=== PATIENT | male | born 1990 | race African-American/Black ===

== ENCOUNTER 2019-04-04 22:10 | Emergency (ER) | payer OTHER ==
[2019-04-04 22:26] VITALS: BMI 39.5
[2019-04-04] MEDS ORDERED: KETOROLAC TROMETHAMINE 30 MG/1 ML VIAL IVPUSH ONE (22:57)
[2019-04-04] MEDS ORDERED: SODIUM CHLORIDE 0.9% 500 ML INFUS.BAG IV ONE (22:57)
[2019-04-04] MEDS ORDERED: FAMOTIDINE 20 MG/50 ML IVPB 20 MG/50 ML MG IVPB ONE ×2 (23:25→23:29)
--- NOTE | 2019-04-04 23:25 | PDOC ---
History of Present Illness - General Chief Complaint: Cold Symptoms Stated Complaint: FEVER Time Seen by Provider: 04/04/19 23:09 History Source: Patient Exam Limitations: No Limitations - History of Present Illness Initial Comments: 04/04/19 23:31 Patient is a 28-year-old male with no past medical history here with complaints of diarrhea, sore throat, body aches, fever since 3 days. States he started out with some diarrhea and progress to body aches sore throat and fever. (+) Nasal congestion, (+) recent. States it is difficult to swallow pain is 7/10 sharp in his throat, and endorses epigastric burning abdominal pain 8/10. He has been trying to track hydrate with three 8 ounce cups of water per hour. Denies any sick contact or food contact. PMHX: as above PSOCHX: ALL: NKDA GENERAL/CONSTITUTIONAL: No fever or chills. No weakness. No weight change. HEAD, EYES, EARS, NOSE AND THROAT: No change in vision. No ear pain or discharge. (+) sore throat. CARDIOVASCULAR: No chest pain or shortness of breath. RESPIRATORY: (+) cough, (-) wheezing, or hemoptysis. GASTROINTESTINAL: (+) nausea, (-) vomiting, (+) diarrhea (-) constipation. No rectal bleeding. GENITOURINARY: No dysuria, frequency, or change in urination. MUSCULOSKELETAL: No joint or muscle swelling or pain. No neck or back pain. SKIN AND BREASTS: No rash or easy bruising. NEUROLOGIC: No headache, vertigo, loss of consciousness, or loss of sensation. PSYCHIATRIC: No depression or anxiety. ENDOCRINE: No increased thirst. No abnormal weight change. HEMATOLOGIC/LYMPHATIC: No anemia, easy bleeding, or history of blood clots. ALLERGIC/IMMUNOLOGIC: No hives or skin allergy. No latex allergy. GENERAL: The patient is awake, alert, and fully oriented, in no acute distress. HEAD: Normal with no signs of trauma. EYES: Pupils equal, round and reactive to light, extraocular movements intact, sclera anicteric, conjunctiva clear. ENT: Ears normal, nares patent, oropharynx clear without exudates, mild erythema. Moist mucous membranes. NECK: Normal range of motion, supple without lymphadenopathy, JVD, or masses. LUNGS: Breath sounds equal, clear to auscultation bilaterally. No wheezes, and no crackles. HEART: Regular rate and rhythm, normal S1 and S2 without murmur, rub. ABDOMEN: Soft, (+) tenderness in the epigastrum, (-) tenderness McBurny's point , normoactive bowel sounds. No guarding, no rebound. No masses, (-) CVAT. EXTREMITIES: Normal range of motion, no edema. No clubbing or cyanosis. No cords, erythema, or tenderness. NEUROLOGICAL: Cranial nerves II through XII grossly intact. Normal speech, normal gait. PSYCH: Normal mood, normal affect. SKIN: Warm, Dry, normal turgor, no rashes or lesions noted. Past History - Past Medical History Allergies/Adverse Reactions: Allergies Allergy/AdvReac Type Severity Reaction Status Date / Time bee venom protein (honey bee) Allergy Verified 04/04/19 22:23 Home Medications: Ambulatory Orders Ranitidine HCl [Zantac] 300 mg PO DAILY #14 tablet 04/05/19 Cancer: No Cardiac Disorders: No CVA: No COPD: No Other medical history: eczema - Suicide/Smoking/Psychosocial Hx Smoking History: Never smoked Information on smoking cessation initiated: No Hx Alcohol Use: No Drug/Substance Use Hx: No *Physical Exam - Vital Signs Last Vital Signs Temp Pulse Resp BP Pulse Ox 103 F H 100 H 20 138/75 99 04/04/19 22:23 04/04/19 22:23 04/04/19 22:23 04/04/19 22:23 04/04/19 22:23 ED Treatment Course - LABORATORY CBC & Chemistry Diagram: 04/04/19 23:26 04/04/19 23:26 - RADIOLOGY Radiology Studies Ordered: Category Date Time Status CHEST PA & LAT [RAD] Stat Radiology 04/04/19 22:56 Ordered Medical Decision Making - Medical Decision Making 04/04/19 23:31 Patient is a 28-year-old male with no past medical history here with complaints of diarrhea, sore throat, body aches, fever since 3 days. States he started out with some diarrhea and progress to body aches sore throat and fever. (+) Nasal congestion, (+) recent. States it is difficult to swallow pain is 7/10 sharp in his throat. He has been trying to track hydrate with three 8 ounce cups of water per hour. Denies any sick contact or food contact. Symptoms are consistent with a viral illness. Labs include rapid strep. IV fluid, Toradol, Pepcid, Decadron Reassess 04/05/19 00:59 Conclusion feels improved after fluids and medications. Labs reviewed noted to have potassium of 3.2. will replace with KCl 40 meq po. Chest x-ray negative Bedside ultrasound done due to continued complaint of epigastric pain, was negative for gallstone, septated gallbladder noted. Patient was given GI cocktail, combination of Maalox and viscous lidocaine. Patient given Bentyl 20 mg by mouth Selected Entries 04/05/19 03:11 Temperature 100.2 F H Pulse Rate [ 96 H Left Radial] Respiratory 18 Rate Blood Pressure 130/74 [Left Arm] O2 Sat by Pulse 97 Oximetry (%) Patient is tolerating by mouth states she still has mild burning in the epigastrium. We will refer patient to the GI. I discussed the physical exam findings, ancillary test results and final diagnoses with the patient. I answered all of the patient's questions. The patient was satisfied with the care received and felt comfortable with the discharge plan and treatment plan. The Patient agrees to follow up with the primary care physician within 24-72 hours. *DC/Admit/Observation/Transfer Diagnosis at time of Disposition: Fever Qualifiers: Fever type: unspecified Qualified Code(s): R50.9 - Fever, unspecified Upper respiratory infection Qualifiers: URI type: unspecified URI Qualified Code(s): J06.9 - Acute upper respiratory infection, unspecified - Discharge Dispostion Disposition: HOME Condition at time of disposition: Stable - Prescriptions Prescriptions: Ranitidine HCl [Zantac] 300 mg PO DAILY #14 tablet - Referrals Referrals: Juan Ramon Odom MD [Staff Physician] - - Patient Instructions Printed Discharge Instructions: DI for Viral Upper Respiratory Infection -- Adult, DI for Diarrhea and Traveler's Diarrhea -- Adult, DI for Viral Pharyngitis Additional Instructions: Your Discharge Instructions: You must call primary care physician within 24 hours to arrange follow-up. Return to the Emergency Department with any new, persistent or worsening symptoms, for fever, chills, SOB, dizziness or any other concerning changes that may occur. Follow-up with the orthopedic dentist - Post Discharge Activity Forms/Work/School Notes: Back to Work
[2019-04-04] MEDS ORDERED: KETOROLAC TROMETHAMINE 30 MG/1 ML VIAL ONE (23:29)
[2019-04-04 23:32] LABS: BASO % 0.3 % (0-2.0); EOS % 0.1 % (0-4.5); HEMATOCRIT 39.5 % (35.4-49); HEMOGLOBIN 13.4 GM/dL (11.7-16.9); LYMPH % 14.7 % (8-40); MCH 24.8 pg (25.7-33.7); MEAN CELL VOLUME 73.1 fl (80-96); MEAN PLT VOLUME 9.2 fl (7.5-11.1); MONO % 11.4 % (3.8-10.2); NEUT % 73.5 % (42.8-82.8); PLATELET COUNT 106 K/MM3 (134-434); RDW 13.8 % (11.9-15.9); WHITE BLOOD COUNT 8.9 K/mm3 (4.0-10.0)
[2019-04-04] MEDS ORDERED: DEXAMETHASONE SOD PHOSPHATE 10 MG/1 ML VIAL IVPUSH ONE (23:36)
[2019-04-04] MEDS ORDERED: DEXAMETHASONE SOD PHOSPHATE 10 MG/1 ML VIAL ONE (23:47)
[2019-04-05 00:05] LABS: ALBUMIN 4.1 g/dl (3.4-5.0); BILIRUBIN,TOTAL 0.4 mg/dL (0.2-1); CALCIUM 8.6 mg/dL (8.5-10.1); CREATININE 1.4 mg/dL (0.55-1.3); POTASSIUM 3.2 mmol/L (3.5-5.1); TOT PROT 7.3 g/dl (6.4-8.2)
[2019-04-05] MEDS ORDERED: POTASSIUM CHLORIDE TABS 20 MEQ TABLET.ER (FP) PO ONE ×2 (00:33→01:55)
[2019-04-05] MEDS ORDERED: DICYCLOMINE HCL 20 MG TABLET PO ONE (02:04)
[2019-04-05] MEDS ORDERED: LIDOCAINE VISCOUS 2% ORAL/TOP 20 ML UNIT-DOSE CUP MM ONE (02:04)
[2019-04-05] MEDS ORDERED: MAG HYDROX/AL HYDROX/SIMETH 30 ML UNIT-DOSE CUP PO ONE (02:04)
[2019-04-05] MEDS ORDERED: DICYCLOMINE HCL 10 MG CAPSULE ONE (02:16)
[2019-04-05] MEDS ORDERED: LIDOCAINE VISCOUS 2% ORAL/TOP 20 ML UNIT-DOSE CUP ONE (02:16)
[2019-04-05] MEDS ORDERED: MAG HYDROX/AL HYDROX/SIMETH 30 ML UNIT-DOSE CUP ONE (02:17)
[2019-04-05 02:44] LABS: URINE APPEARANCE CLEAR; URINE BILIRUBIN NEGATIVE (NEGATIVE); URINE COLOR DK YELLOW; URINE GLUCOSE (UA) NEGATIVE (NEGATIVE); URINE KETONE TRACE (NEGATIVE); URINE LEUK ESTERASE NEGATIVE (NEGATIVE); URINE NITRITE NEGATIVE (NEGATIVE); URINE PROTEIN 1+ (NEGATIVE)
[2019-04-05 02:47] LABS: EPI CELLS 7.2 /HPF (0-5/HPF); URINE BACTERIA 7.1 /hpf (NEGATIVE); URINE CASTS 70 /lpf (0-8); URINE RBC 7 /hpf (0-4)
[2019-04-05 02:50] LABS: URINE WBC 6.8 /hpf (0-5)
[2019-04-05 03:12] VITALS: BP 130/74; PULSE 96; TEMP 100.2
== END 2019-04-05 03:42 | disposition home or self-care (01) ==
LOC: JER 22:10
PROC: 3E0337Z Introduction of Electrolytic and Water Balance Substance into Peripheral Vein, Percutaneous Approach (ICD-10-PCS; principal; 2019-04-04)
PROC: 3E0333Z Introduction of Anti-inflammatory into Peripheral Vein, Percutaneous Approach (ICD-10-PCS; 2019-04-04)
PROC: 3E033GC Introduction of Other Therapeutic Substance into Peripheral Vein, Percutaneous Approach (ICD-10-PCS; 2019-04-04)
DX: J06.9 Acute upper respiratory infection, unspecified (principal); R50.9 Fever, unspecified
CPT/HCPCS: 36415; 71046-TC-FY; 80053; 81003; 85025; 87070; 87086; 87880; 99282-25; J1100

== ENCOUNTER 2019-08-07 20:04 | Emergency (ER) | payer OTHER ==
[2019-08-07 20:17] VITALS: BP 114/71; PULSE 89; TEMP 98.8; BMI 41.0
--- NOTE | 2019-08-07 22:35 | PDOC ---
History of Present Illness - General Chief Complaint: Injury Stated Complaint: LT ANKLE INJURY YESTERDAY Time Seen by Provider: 08/07/19 20:41 History Source: Patient Exam Limitations: No Limitations - History of Present Illness Initial Comments: 08/07/19 22:36 HISTORY OF PRESENT ILLNESS: 28-year-old male denies medical history presents emergency department for evaluation of right ankle pain for one day status post inversion of his right foot. Patient reports this happens approximately 3:30 in the afternoon of 08/06. Patient reports the pain as a throbbing sensation and rates it currently 4/10 after taking Tylenol and Motrin. 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 Patient removed his Alonso wrap and has been ambulatory on his ankle since he got home from work. No recent travel or sick contacts. PAST MEDICAL HISTORY: Denies past medical history SURGICAL HISTORY: Denies ALLERGIES: No known drug allergies REVIEW OF SYSTEMS General/Constitutional: Denies fever or chills. Denies weakness, weight change. HEENT: Denies change in vision. Denies ear pain or discharge. Denies sore throat. Cardiovascular: Denies chest pain or shortness of breath. Respiratory: Denies cough, wheezing, or hemoptysis. Gastrointestinal: Denies nausea, vomiting, diarrhea or constipation. Denies rectal bleeding. Genitourinary: Denies dysuria, frequency, or change in urination. Musculoskeletal: see HPI Skin and breasts: Denies rash or easy bruising. Neurologic: Denies headache, vertigo, loss of consciousness, or loss of sensation. Psychiatric: Denies depression or anxiety. Endocrine: Denies increased thirst. Denies abnormal weight change. Hematologic/Lymphatic: Denies anemia, easy bleeding, or history of blood clots. Allergic/Immunologic: Denies hives or skin allergy. Denies latex allergy. PHYSICAL EXAM General Appearance: Well-appearing, appropriately dressed. No apparent distress , no intoxication. Vascular Pulses: Dorsalis-Pedis (R): 2+, Dorsalis-Pedis (L): 2+ Musculoskeletal/Extremities: Normal inspection. FROM of all extremities, normal capillary refill. Pelvis Stable. No CVA tenderness. No tenderness to extremities, pedal edema, swelling, erythema or deformity. NVI. Past History - Past Medical History Allergies/Adverse Reactions: Allergies Allergy/AdvReac Type Severity Reaction Status Date / Time bee venom protein (honey bee) Allergy Verified 04/04/19 22:23 Home Medications: Ambulatory Orders Ranitidine HCl [Zantac] 300 mg PO DAILY #14 tablet 04/05/19 Cancer: No Cardiac Disorders: No CVA: No COPD: No - Suicide/Smoking/Psychosocial Hx Smoking History: Never smoked Hx Alcohol Use: Yes (socially) Drug/Substance Use Hx: No *Physical Exam - Vital Signs Last Vital Signs Temp Pulse Resp BP Pulse Ox 98.8 F 89 19 114/71 100 08/07/19 20:14 08/07/19 20:14 08/07/19 20:14 08/07/19 20:14 08/07/19 20:14 ED Treatment Course - RADIOLOGY Radiology Studies Ordered: Category Date Time Status ANKLE & FOOT-RIGHT* [RAD] Stat Radiology 08/07/19 21:05 Taken Medical Decision Making - Medical Decision Making 08/07/19 22:35 A/P: 28-year-old male with right ankle pain status post inversion injury which occurred on 08/06 at 3:30 PM. Pearson ankle rules are negative Patient is requesting an x-ray. X-ray of the right ankle and ft as read by me: No acute fractures or dislocations are present. Alonso wrap Discharge Portions of this note have been documented using voice recognition software. As a result, errors may occur in the freezing room worker process. Effort has been made to correct all grammatical and freezing room worker error, but some may have been missed. *DC/Admit/Observation/Transfer Diagnosis at time of Disposition: Acute right ankle pain - Discharge Dispostion Disposition: HOME Condition at time of disposition: Stable Decision to Admit order: No - Referrals Referrals: Matthias Leblanc DO [Staff Physician] - - Patient Instructions Additional Instructions: Take Tylenol or Motrin as needed for pain. Follow manufacturers instructions for appropriate dosage. Try not to walk or bear weight on your right ankle as much as possible for the next 3 days. Apply ice for 20 minutes and removed for at least 20 minutes before reapplying the ice. Keep Alonso wrap on your ankle as much as possible to help decrease some of the swelling control pain. Whenever possible keep your foot elevated to decrease swelling to your ankle. You've been given the number for an orthopedist. If symptoms do not resolve within the next 7 days call the orthopedist for further evaluation. Return to emergency department for discoloration of the foot, numbness or tingling to the foot, worsening pain, or any other concerns. Thank you very much for choosing us to provide your emergent healthcare needs. - Post Discharge Activity
== END 2019-08-07 22:25 | disposition home or self-care (01) ==
LOC: JERFT 20:04 → JER 20:04 → JERFT 22:25
DX: M25.571 Pain in right ankle and joints of right foot (principal); X50.1XXA Overexertion from prolonged static or awkward postures, initial encounter; Y93.89 Activity, other specified; Y92.89 Other specified places as the place of occurrence of the external cause; Y99.8 Other external cause status
CPT/HCPCS: 73610-TC-RT-FY; 73630-TC-RT-FY; 99281-25

== ENCOUNTER 2019-08-20 18:11 | Emergency (ER) | payer OTHER ==
[2019-08-20 18:21] VITALS: BP 131/78; PULSE 89; TEMP 98.7; BMI 41.0
--- NOTE | 2019-08-20 18:24 | PDOC ---
History of Present Illness - General Chief Complaint: Pain, Acute Stated Complaint: PAIN Time Seen by Provider: 08/20/19 18:24 Past History - Past Medical History Allergies/Adverse Reactions: Allergies Allergy/AdvReac Type Severity Reaction Status Date / Time bee venom protein (honey bee) Allergy Verified 04/04/19 22:23 Home Medications: Ambulatory Orders Ranitidine HCl [Zantac] 300 mg PO DAILY #14 tablet 04/05/19 Cancer: No Cardiac Disorders: No CVA: No COPD: No - Immunization History Immunization Up to Date: No - Psycho Social/Smoking Cessation Hx Smoking History: Never smoked Have you smoked in the past 12 months: No Information on smoking cessation initiated: No Hx Alcohol Use: Yes Drug/Substance Use Hx: No *Physical Exam - Vital Signs Last Vital Signs Temp Pulse Resp BP Pulse Ox 98.7 F 89 20 131/78 100 08/20/19 18:19 08/20/19 18:19 08/20/19 18:19 08/20/19 18:19 08/20/19 18:19 Discharge - Discharge Information Condition: Stable - Follow up/Referral - Patient Discharge Instructions - Post Discharge Activity
[2019-08-20] MEDS ORDERED: KETOROLAC TROMETHAMINE 30 MG/1 ML VIAL IM ONE (18:29)
[2019-08-20] MEDS ORDERED: KETOROLAC TROMETHAMINE 30 MG/1 ML VIAL ONE (18:31)
--- NOTE | 2019-08-20 18:34 | PDOC ---
History of Present Illness - General Chief Complaint: Pain, Acute Stated Complaint: PAIN Time Seen by Provider: 08/20/19 18:24 History Source: Patient Exam Limitations: No Limitations - History of Present Illness Initial Comments: 08/20/19 18:30 28 year old male with no significant medical or surgical history present with pain in right shoulder since Friday. Patient reports trip and fall while running onto right shoulder. Reports tumbling when he fell, no head strike or loc. States took ibuprofen and muscle relaxant but still with pain with or without movement. Occurred: reports: other (4 days ago) Severity: reports: mild Upper Extremity Pain Location: right: shoulder Method of Injury: reports: fell Modifying Factors: improves with: immobilization Extremity Pain Location - Extremity Pain Location Extremity Pain Locations: right: arm Past History - Travel Traveled outside of the country in the last 30 days: No Close contact w/someone who was outside of country & ill: No - Past Medical History Allergies/Adverse Reactions: Allergies Allergy/AdvReac Type Severity Reaction Status Date / Time bee venom protein (honey bee) Allergy Verified 04/04/19 22:23 Home Medications: Ambulatory Orders Ranitidine HCl [Zantac] 300 mg PO DAILY #14 tablet 04/05/19 Ibuprofen 600 mg PO TID #20 tablet 08/20/19 Cancer: No Cardiac Disorders: No CVA: No COPD: No - Immunization History Immunization Up to Date: No - Psycho Social/Smoking Cessation Hx Smoking History: Never smoked Have you smoked in the past 12 months: No Information on smoking cessation initiated: No Hx Alcohol Use: Yes Drug/Substance Use Hx: No Review of Systems - Review of Systems Able to Perform ROS?: Yes Is the patient limited Irish proficient: No Constitutional: No: Chills, Fever HEENTM: No: Nose Congestion, Throat Pain, Throat Swelling Respiratory: No: Orthopnea, Shortness of Breath Cardiac (ROS): No: Chest Pain, Lightheadedness ABD/GI: No: Nausea, Poor Appetite, Vomiting, Indigestion : No: Burning, Pain Musculoskeletal: Yes: Joint Pain. No: Joint Swelling, Joint Stiffness Integumentary: No: Bruising, Erythema Neurological: No: Numbness, Paresthesia *Physical Exam - Vital Signs Last Vital Signs Temp Pulse Resp BP Pulse Ox 98.7 F 89 20 131/78 100 08/20/19 18:19 08/20/19 18:19 08/20/19 18:19 08/20/19 18:19 08/20/19 18:19 - Physical Exam General Appearance: Yes: Nourished, Appropriately Dressed HEENT: positive: Pharynx Normal. negative: Nasal Congestion Neck: positive: Supple. negative: Lymphadenopathy (R), Lymphadenopathy (L) Respiratory/Chest: positive: Lungs Clear Cardiovascular: positive: Regular Rhythm, Regular Rate Musculoskeletal: positive: Other (non tender shoulder, no swelling, FROM of right shoulder ). negative: Vertebral Tenderness Extremity: positive: Normal Capillary Refill Neurologic: positive: Fully Oriented, Alert Medical Decision Making - Medical Decision Making 08/20/19 18:35 28 year old male with no significant medical or surgical history present with pain in right shoulder since Friday. Patient reports trip and fall while running onto right shoulder. right shoulder pain xray of right shoulder 08/20/19 19:06 shoulder negative for fracture or dislocation d/c home f/u with ortho as needed Discharge - Discharge Information Problems reviewed: Yes Clinical Impression/Diagnosis: Right shoulder pain Qualifiers: Chronicity: acute Qualified Code(s): M25.511 - Pain in right shoulder Condition: Stable Disposition: HOME - Admission No - Additional Discharge Information Prescriptions: Ibuprofen 600 mg PO TID #20 tablet - Follow up/Referral Referrals: Sari Montes MD [Primary Care Provider] - (call for follow up appointment ) Mk Taylor MD [Staff Physician] - - Patient Discharge Instructions Patient Printed Discharge Instructions: DI for Shoulder Pain Additional Instructions: Activity as tolerated May take ibuprofen and muscle relaxant for pain May call ortho if pain persist pass 1 week - Post Discharge Activity Work/Back to School Note: Back to Work
== END 2019-08-20 19:16 | disposition home or self-care (01) ==
LOC: JERFT 18:11
PROC: 3E0233Z Introduction of Anti-inflammatory into Muscle, Percutaneous Approach (ICD-10-PCS; principal; 2019-08-20)
DX: M25.511 Pain in right shoulder (principal); W01.0XXA Fall on same level from slipping, tripping and stumbling without subsequent striking against object, initial encounter; Y93.02 Activity, running; Y92.9 Unspecified place or not applicable; Y99.8 Other external cause status; Z91.030 Bee allergy status
CPT/HCPCS: 73030-TC-RT-FY; 99282-25

== ENCOUNTER 2020-07-26 09:06 | Emergency (ER) | payer OTHER ==
[2020-07-26 09:25] VITALS: BP 120/70; PULSE 81; TEMP 98.2; BMI 41.0
--- NOTE | 2020-07-26 09:46 | PDOC ---
History of Present Illness - General Chief Complaint: Bite Stated Complaint: BEE STING (ALLERGIC REACTION) Time Seen by Provider: 07/26/20 09:37 History Source: Patient Exam Limitations: No Limitations - History of Present Illness Initial Comments: 07/26/20 09:49 29 year-old male no significant past medical history presenting to the ED complaining of bee sting. Patient states that he was stung by a bee on his upper right shoulder. Patient is complaining of pain at the site. Patient took a Benadryl with minor relief. Patient was worried that he has an allergy to bee stings but has not developed symptoms consistent with allergic reaction. Pt otherwise denies: fevers, chills, syncope, lightheadedness, dizziness, headaches, neck pain, chest pain, shortness of breath, palpitations, back pain, abdominal pain, nausea, vomiting, diarrhea, constipation. 07/26/20 17:05 Past History - Medical History Allergies/Adverse Reactions: Allergies Allergy/AdvReac Type Severity Reaction Status Date / Time bee venom protein (honey bee) Allergy Verified 07/26/20 09:22 Home Medications: Ambulatory Orders Ranitidine HCl [Zantac] 300 mg PO DAILY #14 tablet 04/05/19 Ibuprofen 600 mg PO TID #20 tablet 08/20/19 Cancer: No Cardiac Disorders: No CVA: No COPD: No - Immunization History Immunization Up to Date: No - Psycho-Social/Smoking History Smoking History: Never smoked Have you smoked in the past 12 months: No - Substance Abuse Hx (Audit-C & DAST Scrn) How often the patient has a drink containing alcohol: Never Score: In Men: 4 or > Positive; In Women: 3 or > Positive: 0 Screen Result (Pos requires Nsg. Audit-10AR): Negative *Physical Exam - Vital Signs Last Vital Signs Temp Pulse Resp BP Pulse Ox 98.2 F 81 17 120/70 97 07/26/20 09:22 07/26/20 09:22 07/26/20 09:22 07/26/20 09:22 07/26/20 09:22 - Physical Exam 07/26/20 09:51 Gen: AAOx 3, no acute distress, comfortable, no signs of respiratory distress HENT: atraumatic, normocephalic with no laceration or contusion. Nasal mucosa without erythema. Oropharynx without erythema or exudates. Mucous membranes moist. EYES: PERRL, EOM intact, conjunctiva pink NECK: supple; trachea midline; no JVD, no lymphadenopathy, or thyromegaly CV: RRR no murmurs, gallops, or rubs. CHEST: CTA b/l no wheezing, rales or rhonchi ABD: +BS/ND. no TTP; soft, no rebound, no guarding EXTREMITY: no cyanosis or erythema. 2+ dorsalis pedis, posterior tibial, and radial pulse. No pedal edema; no calf swelling or tenderness SKIN: no rash, warm and dry, no diaphoresis small raised area on posterior R shoulder consist with bee sting no stinger in place HEME: no purpura or ecchymosis NEURO: normal speech, CN II-XII intact, sensation intact, normal gait, no cerebellar deficits MS: 5/5 strength in all extremities, FROM intact in all extremities. Medical Decision Making - Medical Decision Making 07/26/20 09:51 29-year-old male with bee sting Vital signs stable Area cleaned with alcohol and bacitracin applied Patient instructed to keep area clean and dry as well as to apply hydrocortisone and/or bacitracin to the area Pt appears well and is safe and stable for discharge with strict return precautions including signs and symptoms requring immediate return to the ED Supportive care instructions explained and given to pt. Reasons to return emergently to ER explained and given. Importance of follow up with PMD and other specialists as indicated stressed to pt. Pt verbalized understanding of instructions. Pt to follow up with PMD in 2 days. Discharge - Discharge Information Problems reviewed: Yes Clinical Impression/Diagnosis: Insect bite Qualifiers: Encounter type: initial encounter Site of insect bite: shoulder Laterality: left Qualified Code(s): S40.262A - Insect bite (nonvenomous) of left shoulder, initial encounter Condition: Stable Disposition: HOME - Follow up/Referral Referrals: Gavino Watson MD [Primary Care Provider] - - Patient Discharge Instructions Patient Printed Discharge Instructions: DI for Insect Bites and Stings - Post Discharge Activity Work/Back to School Note: Back to Work
== END 2020-07-26 09:53 | disposition home or self-care (01) ==
LOC: JERFT 09:06
DX: S40.262A Insect bite (nonvenomous) of left shoulder, initial encounter (principal)
CPT/HCPCS: 99281-25

== ENCOUNTER 2022-10-17 12:05 | Emergency (ER) | payer OTHER ==
[2022-10-17 13:03] VITALS: BP 123/81; PULSE 84; RESP 20; TEMP 98; BMI 30.4
== END 2022-10-17 13:18 | disposition home or self-care (01) ==
LOC: FER 12:05
DX: S61.210A Laceration without foreign body of right index finger without damage to nail, initial encounter (principal)
CPT/HCPCS: 99282-25

== ENCOUNTER 2023-10-05 11:33 | Emergency (ER) | payer OTHER ==
[2023-10-05 11:53] VITALS: BP 136/80; PULSE 85; RESP 16; TEMP 99.3; BMI 42.5
== END 2023-10-05 12:23 | disposition home or self-care (01) ==
LOC: FER 11:33
DX: R21 Rash and other nonspecific skin eruption (principal); L29.9 Pruritus, unspecified; L30.9 Dermatitis, unspecified
CPT/HCPCS: 99283-25